=== PATIENT | female | born 2000 | race African-American/Black ===

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

== ENCOUNTER 2023-02-06 15:11 | Emergency (ER) | payer BC, OTHER ==
[2023-02-06] MEDS ORDERED: Dexamethasone 10 MG/ML VIAL ONE (16:18)
[2023-02-06] MEDS ORDERED: Ketorolac Tromethamine 30 MG/ML VIAL ONE (16:18)
[2023-02-06] MEDS ORDERED: Morphine 4 MG/ML VIAL ONE (16:18)
== END 2023-02-06 16:26 | disposition home or self-care (01) ==
LOC: ERS 15:11
DX: L73.2 Hidradenitis suppurativa (principal); L03.90 Cellulitis, unspecified
CPT/HCPCS: 96372; 99283; J1100; J1885; J2270

== ENCOUNTER 2023-02-21 13:10 | Emergency (ER) | payer BC ==
[~2023-02-21 13:10] MED LIST: Iopamidol-370 76% 500 ML MDV (1 ML CHARGE) ONE
[2023-02-21 13:39] LABS: #Monocytes 0.4 thou/uL (0.11-0.59); #Neutrophils 9.8 thou/uL (1.40-6.50); %Basophils 0.2 % (0.0-1.0); %Monocytes 3.3 % (0.0-10.0); %Neutrophils 84.2 % (42.0-75.0); Hematocrit 42.5 % (36.0-47.0); Hemoglobin 13.7 g/dL (12.0-16.0); Mean Corpuscular HGB CONC 32.2 g/dL (32.0-36.0); Mean Corpuscular Hemoglobin 26.8 pg (27.0-31.0); Mean Platelet Volume 8.9 fL (7.4-10.4); Platelet Count 333 10x3/uL (130-400); RBC Distribution Width 13.4 % (11.5-14.5); Red Blood Cell (RBC) Count 5.12 mill/uL (4.20-5.40); White Blood Cell (WBC) Count 11.7 10x3/uL (4.8-10.8)
[2023-02-21] MEDS ORDERED: Ondansetron ODT 4 MG TAB ONE (13:39)
[2023-02-21 13:50] LABS: BHCG - Serum Negative (NEGATIVE); Pregs Control Background? CLEAR/WHITE (CLR/WHITE); Pregs Control Bar Appear? YES (CONTROL BAR)
[2023-02-21 14:02] LABS: Bilirubin Negative (Negative); Blood, Urine Negative (Negative); CAUTI Indications for Culture Pelvic or flank pain; Clarity Clear (Clear); Glucose, Urine (Dipstick) Normal (Negative); Ketone, Urine Negative (Negative); Leukocyte Negative Leu/uL (Negative); Nitrite Negative (Negative); Protein, Urine (Dipstick) 10 mg/dL (Neg-Trace); RBC/HPF 0-3 HPF (0-3); Squamous Epithelial 0-3 HPF (0-3); Urobilinogen Normal mg/dL (Less than 2); WBC/HPF 0-3 HPF (0-3); pH, Urine 5.5 (5.0-9.0)
[2023-02-21 14:03] LABS: ALT (SGPT) 13 U/L (8-55); AST (SGOT) 12 U/L (5-34); Alkaline Phosphatase 86 U/L (40-110); Anion Gap 17 mmol/L (10-20); BUN (Urea Nitrogen) 9 mg/dL (7.0-18.7); Bilirubin, Total 0.4 mg/dL (0.2-1.2); Calc. Creatinine Clearance 0 mL/min (70-130); Calcium 9.6 mg/dL (7.8-10.44); Carbon Dioxide 21 mmol/L (22-29); Chloride 104 mmol/L (98-107); Estimated GFR 100; Globulin 3.8 g/dL (2.4-3.5); Glucose 119 mg/dL (70-105); Lipase 15 U/L (8-78); Potassium 3.7 mmol/L (3.5-5.1); Protein, Total 7.8 g/dL (6.0-8.3); Sodium 138 mmol/L (136-145)
[2023-02-21 14:03] LABS: Bacteria/HPF 1+ HPF (None Seen)
[2023-02-21 14:04] LABS: Urine Culture Reflex No No
[2023-02-21] MEDS ORDERED: Dicyclomine 20 MG TAB ONE (14:12)
[2023-02-21 14:25] LABS: SARS-CoV-2 NAA Rapid Test Not Detected (NotDetected)
== END 2023-02-21 15:45 | disposition home or self-care (01) ==
LOC: ERS 13:10
DX: R11.2 Nausea with vomiting, unspecified (principal)
CPT/HCPCS: 36415; 74177; 80053; 81001; 83690; 84703; 85025; 93005; Q0162; Q9967